=== PATIENT | male | born 1945 | race Caucasian/White ===

== ENCOUNTER → 2019-08-16 10:24 | Outpatient (CLI) | payer MEDICARE, SELFPAY ==
--- NOTE | 2019-08-16 10:27 | DI.RAD.S_ITS ---
PROCEDURE: XR LUMBAR SPINE MIN 4V INDICATIONS: axial LBP TECHNIQUE: 5 total views of the lumbar spine were acquired, including bilateral oblique views. COMPARISON: [facility], MR, LUMBAR SPINE W/O CONTRAST, 02/14/2013, 10:41. [facility], CR, SPINE LUMB 2 OR 3VW, 09/03/2012, 10:00. FINDINGS: Bones: S-shaped scoliotic curvature is seen. There is minimal retrolisthesis seen at L1-L2 and L2-L3 and L5-S1. 5 nonrib-bearing, lumbar type vertebral bodies are seen. No displaced fractures are seen. No suspicious lytic or blastic lesions are seen. There is minimal to mild disc space narrowing at L3-L4, L4-L5, and L5-S1. Lower lumbar spine facet arthropathy is seen. Age-appropriate lower thoracic spine degenerative changes are seen. Soft tissues: Overlying bowel gas pattern is normal. No suspicious soft tissue calcifications. Atherosclerotic calcification is noted. Oblique images: No pars defects. IMPRESSION: Mild lower lumbar spine degenerative changes are seen. No pars defects are seen. Dictated by: Jared Alicia M.D. on 08/16/2019 at 10:00 Approved by: Jared Alicia M.D. on 08/16/2019 at 10:03
== END ==
PROVIDERS: Family Provider Internal Medicine; PCP Internal Medicine; Visit Provider Physical Medicine & Rehabilitation
DX: M47.27 Other spondylosis with radiculopathy, lumbosacral region (principal)
CPT/HCPCS: 72110

== ENCOUNTER → 2019-08-24 09:07 | Outpatient (CLI) | payer MEDICARE, SELFPAY ==
--- NOTE | 2019-08-24 09:09 | DI.MRI.S_ITS ---
PROCEDURE: MR LUMBAR SPINE WO CON INDICATIONS: Right L3-4, L4-5 and L5-S1 facets TECHNIQUE: Noncontrast sagittal T1 spin echo and T2 fast echo, sagittal STIR, axial T1 and T2 fast spin echo through the lumbar spine. In cases with scoliosis, additional coronal T2 fast spin echo may be performed. COMPARISON: [facility], CR, XR LUMBAR SPINE MIN 4V, 08/16/2019, 10:27. FINDINGS: Image quality: Excellent. Alignment and Curvature: There is normal bony alignment. Bone Marrow: Marrow is of normal overall signal. No acute vertebral body compression fractures. Spinal Cord: Conus medullaris terminates at the T12-L1 level. Visualized cord demonstrates normal signal and size. Paraspinous Soft Tissues: No paravertebral masses. Mild infrarenal abdominal aortic aneurysm, measuring 3.3 cm. 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 T12-L1: No canal stenosis or foraminal stenosis. Facet joints are unremarkable. L1-L2: Normal appearance. L2-L3: Mild disc height loss. Mild disc bulge. Mild facet hypertrophy. No canal stenosis or foraminal stenosis. L3-L4: Moderate diffuse disc bulge. Facet and ligament hypertrophy. Moderate to severe canal stenosis. Mild bilateral foraminal stenosis. L4-L5: Mild diffuse disc bulge. Facet and ligament hypertrophy. Moderate canal stenosis. Mild to moderate right foraminal narrowing. L5-S1: Mild diffuse disc bulge. Mild facet hypertrophy. No significant canal stenosis. No significant foraminal stenosis. IMPRESSION: 1. Central canal stenosis is moderate to severe at L3-L4 and moderate at L4-5. 2. Multilevel facet arthropathy Dictated by: Kendrick Kulkarni M.D. on 08/24/2019 at 21:03 Approved by: Kendrick Kulkarni M.D. on 08/24/2019 at 21:09
== END ==
PROVIDERS: Family Provider Internal Medicine; PCP Internal Medicine; Visit Provider Physical Medicine & Rehabilitation
DX: M47.817 Spondylosis without myelopathy or radiculopathy, lumbosacral region (principal); M47.816 Spondylosis without myelopathy or radiculopathy, lumbar region; M48.061 Spinal stenosis, lumbar region without neurogenic claudication; M48.07 Spinal stenosis, lumbosacral region; I71.4 Abdominal aortic aneurysm, without rupture; I72.3 Aneurysm of iliac artery; M41.50 Other secondary scoliosis, site unspecified
CPT/HCPCS: 72148

== ENCOUNTER 2019-09-12 14:32 | Outpatient (CLI) | payer MEDICARE, SELFPAY ==
[2019-09-12] VITALS (7 sets, daily range): BP systolic 133–161; BP diastolic 58–96; PULSE 49–54; RESP 16–18; TEMP 37.1; O2SAT 98–100
--- NOTE | 2019-09-12 14:33 | DI.RAD.S_ITS ---
PROCEDURE: PAIN L/SI FACET INJ/BLK 1STL INDICATIONS: SPONDYLOSIS FINDINGS: Fluoroscopic spot filming was performed to verify placement of spinal needles at the L3 at L4, L5-L5 and L5-S1 level(s), as labeled on the films. Appropriate location(s) of the needle tip(s) was confirmed by injection of iodinated contrast. IMPRESSION: Fluoroscopy for pain management. Dictated by: Dimitri Austin M.D. on 09/12/2019 at 16:29 Approved by: Dimitri Austin M.D. on 09/12/2019 at 16:30
--- NOTE | 2019-09-12 15:13 | P.PCN_ITS ---
Procedures Date/Time Date of procedure: 09/12/19 Time of procedure: 15:13 General Procedure description: PREOP DIAGNOSIS 1. FACET ARTHROPATHY, 2. AXIAL LBP, 3. MULTILEVEL DDD, POST OP DIAGNOSIS 1. FACET ARTHROPATHY, 2. AXIAL LBP, 3. MULTILEVEL DDD, PROCEDURES 1. FLUORSCOPICALLY GUIDED CONTRAST CONTROLLED FACET JOINT INJECTIONS RIGHT L3/4, L4/5, L5/S1 SURGEON: Nikos Tiwari, INDICATIONS Smith is referred by Dr. Powell for treatment of Axial LBP FINDINGS Multilevel Facet Arthropathy with Clinically significant axial LBP DESCRIPTION OF PROCEDURE Fluoroscopically guided, contrast-controlled right L3/4, L4/5, L5/S1 facet joint injections. Following review of allergy and review of potential side effects and complications, including, but not necessarily limited to, infection, allergic reaction, local tissue breakdown, stroke, temporary or permanent nerve injury, paralysis, and possible , the patient indicated that the patient understood and agreed to proceed. An informed consent document was signed by the patient, witnessed by a nurse, and placed in the patient's chart. Additionally, other treatment options including medications, modalities, and physical therapy were reviewed with the patient. After review of previous anaesthesic history and IV conscious sedation the patient was deemed safe to proceed with todays procedure with IV conscious sedation as ASA class II designation. Safety time-out was performed to confirm patient ID, procedure to be performed and site of procedure. IV sedation was accomplished with a combination of 2mg of Versed and 50mcg of Fentanyl administered by the RN after DO order, titrated to patient comfort during the course of the procedure while the patient remained responsive to all verbal commands. In the prone position, following sterile prep and drape of the lumbar region, the posterior aspect of the right L3/4, L4/5, L5/S1 facet joints were identified fluoroscopically. The skin was anesthetized via a 25-gauge 1.5-inch needle with 1% lidocaine solution into the corresponding facet joints. At this point, a 22- gauge 3.5-inch spinal needle was atraumatically introduced and advanced under fluoroscopic guidance into the corresponding facet joints. Following negative aspiration, injections of approximately 0.2-cc of Isovue 200 confirmed interarticular placement without vascular uptake. Radiological data, including multiple fluoroscopic views of the lumbosacral spine, reveal a spinal needle at the right L3/4, L4/5, L5/S1 facet joints. Subsequent views show flow of contrast material both superiorly and inferiorly within the joint space without vascular or intrathecal uptake. At this point, a total of 0.5 cc including a mixture of 0.25 cc Marcaine and 0.25cc betamethasone was injected without complication into each of the corresponding facet joints. The patient tolerated the procedure well without signs or symptoms of complications prior to transfer to the recovery area for further monitoring. The patient was then transferred to the recovery area where they were observed for an appropriate period of time after the injection. The patient reported a VAS score of 7 prior to the procedure and a post-procedure VAS of 0. Total Fluoroscopy Time: 10.3 seconds Total Conscious Sedation Time: 19min POST OP INSTRUCTIONS The patient was provided a Pain Log to continue to record their response to the target-specific procedure prior to follow-up visit with their referring physician. Additionally, specific post-injection care instructions and a contact number to our office were provided if concerns arise regarding possible complications associated with the procedure are suspected Complications: none
[2019-09-12] MEDS: MIDAZOLAM 5 MG/5 ML VIAL IV (15:26)
[2019-09-12] MEDS: fentaNYL 100 MCG/2 ML INJ 50 MCG IV (15:27)
[2019-09-12] MEDS: IOPAMIDOL 15 ML VIAL 3 ML INJ (15:31)
[2019-09-12] MEDS: LIDOCAINE 1% 20 ML 10 ML INJ (15:31)
[2019-09-12] MEDS: BUPIVACAINE 0.5% (PF) VIAL 2 ML INJ (15:32)
[2019-09-12] MEDS: BETAMETHASONE 30 MG/5 ML MDV 12 MG INJ (15:32)
--- NOTE | 2019-09-12 15:33 | PC.NURSE ---
ASSISTING PT OFF TABLE AND TRANSPORTING TO POST PROC AREA IN STABLE CONDITION. PASSING RN CARE OF PT OFF TO ANNE-MARIE Tan RN.
--- NOTE | 2019-09-12 16:36 | PC.NURSE ---
Post procedure discharge note: Patient arrived via w/c at 1540. VSS, O2 Sat WNL on RA. No complaints of pain. Handoff report received from Adán Santillan RN. Able to stand and walk around without increased pain. Pain level at discharge 0/10 at 1620
--- NOTE | 2019-09-12 16:40 | PC.NURSE ---
VERSED AND FENTANYL PREPARED AND ADMINISTERED BY THIS RN. ALL OTHER MEDS PREPARED AND ADMINISTERED BY DR. REGAN.
== END 2019-09-12 16:20 | disposition home or self-care (01) ==
PROVIDERS: Family Provider Internal Medicine; PCP Internal Medicine; Visit Provider Physical Medicine & Rehabilitation
DX: M47.816 Spondylosis without myelopathy or radiculopathy, lumbar region (principal); M47.817 Spondylosis without myelopathy or radiculopathy, lumbosacral region; M54.5 Low back pain; M51.36 Other intervertebral disc degeneration, lumbar region; M51.37 Other intervertebral disc degeneration, lumbosacral region
CPT/HCPCS: 64493; 64494; 64495; 99152; J0702; J2250; J3010

== ENCOUNTER → 2020-06-08 10:10 | Outpatient (CLI) | payer MEDICARE, SELFPAY ==
[2020-06-09 17:55] LABS: COVID19 Sendout Not Detected (Not Detect)
== END ==
PROVIDERS: Family Provider Internal Medicine; PCP Internal Medicine; Visit Provider Nurse Practitioner
DX: Z11.59 Encounter for screening for other viral diseases (principal)
CPT/HCPCS: 87635

== ENCOUNTER 2020-06-11 12:26 | Outpatient (CLI) | payer MEDICARE, SELFPAY ==
[2020-06-11] VITALS (10 sets, daily range): BP systolic 117–158; BP diastolic 62–90; PULSE 42–52; RESP 12–19; TEMP 36.3; O2SAT 96–100
--- NOTE | 2020-06-11 12:27 | DI.RAD.S_ITS ---
PROCEDURE: PAIN L/SI FACET INJ/BLK 1STL INDICATIONS: SPONDYLOSIS COMPARISON: [facility], , PAIN L/SI FACET INJ/BLK 1STL, 09/12/2019, 15:27. FINDINGS: Fluoroscopic spot filming was performed to verify placement of spinal needles at the L3, L4, L5, S1 level(s), as labeled on the films. Appropriate location(s) of the needle tip(s) was confirmed by injection of iodinated contrast. Dictated by: Gautam Miranda M.D. on 06/11/2020 at 15:10 Approved by: Gautam Miranda M.D. on 06/11/2020 at 15:11
[2020-06-11] MEDS: MIDAZOLAM 5 MG/5 ML VIAL IV (13:22)
[2020-06-11] MEDS: BUPIVACAINE 0.5% (PF) VIAL 5 ML INJ (13:22)
[2020-06-11] MEDS: fentaNYL 100 MCG/2 ML INJ 50 MCG IV (13:22)
[2020-06-11] MEDS: LIDOCAINE 1% 20 ML 10 ML INJ (13:26)
[2020-06-11] MEDS: IOPAMIDOL 15 ML VIAL 3 ML INJ (13:27)
--- NOTE | 2020-06-11 13:37 | PM.PROC.IR.1 ---
Date/Time/Diagnoses Date of procedure: 06/11/20 Time of procedure: 13:37 Pre-procedure diagnosis: 1. FACET ARTHROPATHY Post-procedure diagnosis: same Procedure Notes Procedure: 1. Right L3, L4, L5 and S1 MB BLOCKS Indications: Smith is referred by Dr. Powell for treatment of Right Axial LBP. Physician: Nikos Tiwari Total Fluoroscopy time (seconds): 8 Total sedation minutes: 13 Complications: none Procedure in detail & Post-procedure care: DESCRIPTION OF PROCEDURE Fluoroscopically guided, contrast-controlled right L3, L4, L5 and S1 medial branch blocks with 0.5cc of 0.5% Marcaine. Following review of allergy and review of potential side effects and complications, including, but not necessarily limited to, infection, allergic reaction, local tissue breakdown, nerve injury, paralysis, stroke and possible , the patient indicated that the patient understood and agreed to proceed. An informed consent document was signed by the patient, witnessed by a nurse, and placed in the patient's chart. After review of previous anaesthesic history and IV conscious sedation the patient was deemed safe to proceed with today?s procedure with IV conscious sedation as ASA class II designation. Safety time-out was performed to confirm patient ID, procedure to be performed and site of procedure. IV sedation was accomplished with a combination of 2mg of Versed and 50mcg of Fentanyl was administered by the RN after DO order, titrated to patient comfort during the course of the procedure while the patient remained responsive to all verbal commands In the prone position, following sterile prep and drape of the lumbar region, the right L3, L4, L5 and S1 anatomical location of the medial branch of the dorsal ramus was identified fluoroscopically. Subsequently an anesthetic skin wheal using 1% lidocaine solution was initiated at each of the anatomical spots. Subsequently then a 22-gauge 3.5-inch spinal needle was atraumatically introduced and advanced under fluoroscopic guidance at each of the corresponding sites at the right L3, L4, L5 and S1 MB. After negative aspiration, 0.2 cc of Isovue 200 was injected, confirming placement without vascular or intrathecal uptake. Subsequently then 0.5 cc of 0.5% Marcaine solution was injected at each of the corresponding sites at the right L3, L4, L5 and S1 medial branch locations. The patient tolerated the procedure well without signs or symptoms of complications. The procedure tolerated the procedure well without signs or symptoms of complications prior to transfer to the recovery area continued monitoring without incident. Post-procedure, the patient was monitored initiating provocative activities to measure the amount of relief from block of the facetogenic pain. The patient reported a VAS of 7 prior to the procedure and a post-procedure VAS of 1. It has been a pleasure to assist in the diagnostic and therapeutic care of your patient. POST OP INSTRUCTIONS The patient was provided with a Pain Log to complete over the next several hours and subsequent days prior to the patient's follow up with the ordering physician. If the patient has commercial credit reviewer relief to the solution applied, then they may be a candidate for medial branch rhizotomy. The patient is aware, was provided, once again, with a Pain Log and will follow up with the referring physician for review and clinical correlation.
== END 2020-06-11 14:00 | disposition home or self-care (01) ==
LOC: RAD 12:27
PROVIDERS: Family Provider Internal Medicine; PCP Internal Medicine; Referring Provider Internal Medicine; Visit Provider Physical Medicine & Rehabilitation
DX: M47.817 Spondylosis without myelopathy or radiculopathy, lumbosacral region (principal); M47.816 Spondylosis without myelopathy or radiculopathy, lumbar region; M54.5 Low back pain
CPT/HCPCS: 64493; 64494; 64495; 99152; J2250; J3010

== ENCOUNTER → 2021-05-31 08:00 | Outpatient (CLI) | payer MEDICARE, SELFPAY ==
--- NOTE | 2021-05-31 08:01 | DI.RAD.S_ITS ---
PROCEDURE: XR LUMBAR SPINE MIN 4V INDICATIONS: BACK PAIN TECHNIQUE: 5 views of the lumbar spine were acquired, including bilateral oblique views. COMPARISON: [facility], CR, XR LUMBAR SPINE MIN 4V, 08/16/2019, 10:27. FINDINGS: Bones: No acute fracture identified. Multilevel degenerative endplate sclerosis and spurring. Diffuse facet arthropathy. Dextroscoliosis as before. Mild to moderate narrowing of the lumbar disc spaces primarily at L3-L4, L4-L5 and L5-S1. No interval change. Grade 1 retrolisthesis of L2 on L3. Soft tissues: Overlying bowel gas pattern is normal. No suspicious soft tissue calcifications. Oblique images: No pars defects. IMPRESSION: Dextroscoliosis as before. Diffuse lumbar spondylosis and facet arthropathy with no definite interval change. Dictated by: Gautam Miranda M.D. on 05/31/2021 at 9:49 Approved by: Gautam Miranda M.D. on 05/31/2021 at 9:51
== END ==
PROVIDERS: Family Provider Internal Medicine; PCP Internal Medicine; Referring Provider Physical Medicine & Rehabilitation; Visit Provider Physical Medicine & Rehabilitation
DX: M41.80 Other forms of scoliosis, site unspecified (principal); M47.817 Spondylosis without myelopathy or radiculopathy, lumbosacral region; M47.816 Spondylosis without myelopathy or radiculopathy, lumbar region; M51.26 Other intervertebral disc displacement, lumbar region; Z68.30 Body mass index [BMI] 30.0-30.9, adult
CPT/HCPCS: 72110; 99213

== ENCOUNTER → 2021-06-15 08:14 | Outpatient (CLI) | payer MEDICARE, SELFPAY ==
[2021-06-15 13:02] LABS: COVID19 -Nasal RAPID Negative (Negative)
== END ==
PROVIDERS: Family Provider Internal Medicine; PCP Internal Medicine; Visit Provider Physical Medicine & Rehabilitation
DX: Z20.822 Contact with and (suspected) exposure to COVID-19 (principal)
CPT/HCPCS: 87635; C9803

== ENCOUNTER 2021-06-17 07:28 | Outpatient (CLI) | payer MEDICARE, SELFPAY ==
[2021-06-17] VITALS (10 sets, daily range): BP systolic 121–163; BP diastolic 60–87; PULSE 41–48; RESP 12–22; TEMP 36.2; O2SAT 95–100
--- NOTE | 2021-06-17 07:30 | DI.RAD.S_ITS ---
PROCEDURE: PAIN L/S MED/LAT N RFA INDICATIONS: SPONDYLOSIS COMPARISON: [facility], CR, XR LUMBAR SPINE MIN 4V, 05/31/2021, 8:00. FINDINGS: Fluoroscopic spot filming was performed to verify placement of spinal needles at the L3, L4, L5, and S1 level(s), as labeled on the films. IMPRESSION: Intraprocedural examination within normal limits. Dictated by: Jared Alicia M.D. on 06/17/2021 at 8:37 Approved by: Jared Alicia M.D. on 06/17/2021 at 8:38
[2021-06-17] MEDS: fentaNYL 100 MCG/2 ML INJ 50 MCG IV (08:17)
[2021-06-17] MEDS: MIDAZOLAM 5 MG/5 ML VIAL IV (08:17)
[2021-06-17] MEDS: BUPIVACAINE 0.5% (PF) VIAL 5 ML INJ (08:42)
[2021-06-17] MEDS: LIDOCAINE 1% 20 ML 10 ML INJ (08:42)
--- NOTE | 2021-06-17 08:45 | P.PCN_ITS ---
Date/Time/Diagnoses Date of procedure: 06/17/21 Time of procedure: 08:45 Pre-procedure diagnosis: 1. RECALCITRANT FACET ARTHROPATHY Post-procedure diagnosis: same Procedure Notes Procedure: 1. RIGHT L3, L4 AND L5 MEDIAL BRANCH RADIOFREQUENCY NEUROTOMY AND RIGHT S1 DORSAL RAMUS BRANCH RADIOFREQUENCY NEUROTOMY Indications: Smith is referred by Dr. Powell for treatment of facet arthropathy. Physician: Nikos Tiwari Total Fluoroscopy time (seconds): 12 Total sedation minutes: 23 Complications: none Procedure in detail & Post-procedure care: DESCRIPTION OF PROCEDURE Right L3, L4 and L5 medial branch radiofrequency neurotomy and right S1 dorsal ramus branch radiofrequency neurotomy under fluoroscopy with conscious sedation. The patient is well known to this clinic having undergone previous facet injections with good but temporary relief. The patient has experienced appropriate, concordant relief with previous facet and median branch blocks but the patient's pain has been recalcitrant to further conservative measures. Therefore, based upon the patient's relief and persistent symptoms, the patient is considered an appropriate candidate for facet rhizotomy. All of the patient's questions regarding the risks versus benefits of the procedure, including, but not limited to, bleeding, infection, temporary as well as lasting nerve injury, paralysis, stroke, and , as well treatment alternatives were answered to satisfaction. After review of previous anaesthesic history and IV conscious sedation the patient was deemed safe to proceed with today?s procedure with IV conscious sedation as ASA class II designation. Safety time-out was performed to confirm patient ID, procedure to be performed and site of procedure. IV sedation was accomplished with a combination of 2mg of Versed and 50mcg of Fentanyl was administered by the RN after DO order, titrated to patient comfort during the course of the procedure while the patient remained responsive to all verbal commands. After obtaining informed consent, denial of pertinent drug allergies, as well as being made aware of the potential risks of bleeding, infection, spinal cord trauma, paralysis, temporary and permanent nerve damage, seizure, stroke, and possible , the patient was brought to the fluoroscopy suite and positioned prone on the fluoroscopy table. The lumbar region was prepped with Betadine and covered with a fenestrated drape in the usual sterile fashion. Appropriate monitors applied including pulse oximeter, pulse, and blood pressure for regular monitoring throughout the procedure. After local infiltration using 1% lidocaine, under fluoroscopic guidance, a 10- cm RF insulated needle with a 10-mm active tip was positioned parallel to the junction of the right sacral ala and the superior articulating process where the S1 dorsal ramus resides. Needle placement was confirmed with sensory stimulation at 50 Hz, with motor stimulation of .5v on the right which produced local stimulation without radicular component. The stimulation was then increased to 2v with, once again, only local multifidus stimulation without radicular component. This was then followed by two discreet lesions performed at 80 degrees Celsius for 90 seconds each. The needle was then removed and the identical procedure was performed along the length of the right L5 medial branch with motor stimulation at .7v on the right. The identical procedure was once again performed along the length of the right L4 medial branch with motor stimulation of .5v on the right. The identical procedure was once again performed along the length of the right L3 medial branch with motor stimulation of .5v on the right. The patient tolerated the procedure well without signs or symptoms of complications prior to transfer to the recovery area continued monitoring without incident. The patient was then transferred to the recovery area where they were observed for an appropriate period of time after the injection. The patient was then transferred to the recovery area where they were observed for an appropriate period of time after the injection. The patient reported a VAS score of 8 prior to the procedure and a post- procedure VAS of 0. POST OP INSTRUCTIONS The patient was provided a Pain Log to continue to record the patient's response to the target-specific procedure prior to the patient's follow-up visit with the referring physician. Additionally, specific post-injection care instructions and a contact number to our office were provided if concerns arise regarding possible complications associated with the procedure are suspected.
== END 2021-06-17 09:05 | disposition home or self-care (01) ==
LOC: RAD 07:29
PROVIDERS: Family Provider Internal Medicine; PCP Internal Medicine; Referring Provider Physical Medicine & Rehabilitation; Visit Provider Physical Medicine & Rehabilitation
DX: M47.817 Spondylosis without myelopathy or radiculopathy, lumbosacral region (principal); M47.816 Spondylosis without myelopathy or radiculopathy, lumbar region
CPT/HCPCS: 64635; 64636; 99152; 99153; J2250; J3010

== ENCOUNTER → 2022-02-08 10:03 | Outpatient (CLI) | payer MEDICARE, SELFPAY ==
[2022-02-08 12:26] LABS: COVID19 -Nasal RAPID Negative (Negative)
== END ==
PROVIDERS: Family Provider Internal Medicine; PCP Internal Medicine; Visit Provider Physical Medicine & Rehabilitation
DX: Z20.822 Contact with and (suspected) exposure to COVID-19 (principal)
CPT/HCPCS: 87635; C9803

== ENCOUNTER 2022-02-10 09:52 | Outpatient (CLI) | payer MEDICARE, SELFPAY ==
[2022-02-10] VITALS (9 sets, daily range): BP systolic 114–185; BP diastolic 56–95; PULSE 45–50; RESP 14–20; TEMP 36.3; O2SAT 98–100
--- NOTE | 2022-02-10 09:54 | DI.RAD.S_ITS ---
PROCEDURE: PAIN L/S TRANSFORAMINAL INJECT INDICATIONS: SPONDYLOSIS COMPARISON: [facility], CR, XR LUMBAR SPINE MIN 4V, 05/31/2021, 8:00. [facility], XA, PAIN L/S MED/LAT N RFA, 06/17/2021, 8:19. FINDINGS: Fluoroscopic spot filming was performed to verify placement of a spinal needle at the L4-L5 level, as labeled on the films. Appropriate location of the needle tip was confirmed by injection of iodinated contrast. IMPRESSION: Intraprocedural examination within normal limits. Dictated by: Jared Alicia M.D. on 02/10/2022 at 11:43 Approved by: Jared Alicia M.D. on 02/10/2022 at 11:43
[2022-02-10] MEDS: MIDAZOLAM 2 MG/2 ML VIAL IV (10:58)
[2022-02-10] MEDS: DEXAMETHASONE 10 MG/ML VIAL 20 MG INJ (11:02)
[2022-02-10] MEDS: BETAMETHASONE 30 MG/5 ML MDV 6 MG INJ (11:02)
[2022-02-10] MEDS: BUPIVACAINE 0.25% (PF) VIAL 2 ML INJ (11:02)
[2022-02-10] MEDS: IOPAMIDOL 15 ML VIAL 3 ML INJ (11:03)
--- NOTE | 2022-02-10 11:14 | P.PCN_ITS ---
Date/Time/Diagnoses Date of procedure: 02/10/22 Time of procedure: 11:14 Pre-procedure diagnosis: 1. FORAMINAL STENOSIS WITH LE SYMPTOMS Post-procedure diagnosis: same Procedure Notes Procedure: 1. FLUOROSCOPICALLY GUIDED CONTRAST CONTROLLED TRANSFORAMINAL EPIDURAL STEROID INJECTION - RIGHT L4/5 TFESI Indications: Smith is referred by Dr. Powell for treatment of Foraminal Stenosis with Right LE Symptoms Physician: Nikos Tiwari Total Fluoroscopy time (seconds): 13 Total sedation minutes: 11 Complications: none Procedure in detail & Post-procedure care: FINDINGS Foraminal Nerve Root Compression secondary to disc disease and facet hypertrophy DESCRIPTION OF PROCEDURE Following review of allergy and review of potential side effects and complications, including, but not necessarily limited to, infection, allergic reaction, local tissue breakdown, stroke, temporary or permanent nerve injury, paralysis, and possible , the patient indicated that the patient understood and agreed to proceed. An informed consent document was signed by the patient, witnessed by a nurse, and placed in the patient's chart. Additionally, other treatment options including medications, modalities, and physical therapy were reviewed with the patient. After review of previous anaesthesic history and IV conscious sedation the patient was deemed safe to proceed with today?s procedure with IV conscious sedation as ASA class II designation. Safety time-out was performed to confirm patient ID, procedure to be performed and site of procedure. IV sedation was accomplished with a combination of 2mg of Versed was administered by the RN after DO order, titrated to patient comfort during the course of the procedure while the patient remained responsive to all verbal commands In the prone position following sterile prep and drape of the lumbar region, the right L4/5 posterior neuroforamen was identified fluoroscopically. The skin was anesthetized via a 25-gauge 1.5-inch needle with 1% lidocaine solution. At this point, a 25-gauge 3.5-inch spinal needle was atraumatically introduced and advanced under fluoroscopic guidance through the posterior right L4/5 neuroforamen to approximately the anterior aspect of the canal. Depth was confirmed on lateral view. Following negative aspiration, injection of approximately 1.5cc of Isovue 200 under live fluoroscopy in the AP view confi rmed excellent flow along the nerve root, into the epidural space without vascular or intrathecal uptake observed Radiological data, including multiple fluoroscopic views of the lumbosacral spine, reveal a spinal needle at the right L4/5 posterior neuroforamen. Subsequent views show flow of contrast material flowing superiorly and inferiorly along the nerve root confirming epidural flow. Subsequently, a test dose of 1.5 cc of 1% lidocaine solution was administered and patient was observed for two minutes for signs or symptoms of complications, including abdominal pain, shortness of breath, bilateral upper or lower extremity weakness, nausea and vomiting, prior to steroid injection. At this point, a total of 3cc or 20mg of dexamethasone and 6mg of betamethasone was injected without incident. The procedure tolerated the procedure well without signs or symptoms of complications prior to transfer to the recovery area continued monitoring without incident. The patient was then transferred to the recovery area where they were observed for an appropriate time after the injection. The patient reported a VAS score of 7 prior to the procedure and a post- procedure VAS of 0. POST OP INSTRUCTIONS The patient was provided a Pain Log to continue to record their response to the target-specific procedure prior to follow-up visit with their referring phy sician. Additionally, specific post-injection care instructions and a contact number to our office were provided if concerns arise regarding possible complications associated with the procedure are suspected.
== END 2022-02-10 11:34 | disposition home or self-care (01) ==
PROVIDERS: Family Provider Internal Medicine; PCP Internal Medicine; Referring Provider Physical Medicine & Rehabilitation; Visit Provider Physical Medicine & Rehabilitation
DX: M48.061 Spinal stenosis, lumbar region without neurogenic claudication (principal); M51.16 Intervertebral disc disorders with radiculopathy, lumbar region
CPT/HCPCS: 64483; 99152; J0702; J1100; J2250

== ENCOUNTER → 2022-06-21 10:04 | Outpatient (CLI) | payer MEDICARE, SELFPAY ==
[2022-06-21 12:03] LABS: COVID19 -Nasal RAPID Negative (Negative)
== END ==
PROVIDERS: Family Provider Internal Medicine; PCP Internal Medicine; Visit Provider Physical Medicine & Rehabilitation
DX: Z20.822 Contact with and (suspected) exposure to COVID-19 (principal)
CPT/HCPCS: 87635; C9803

== ENCOUNTER 2022-06-23 09:39 | Outpatient (CLI) | payer MEDICARE, SELFPAY ==
[2022-06-23] VITALS (8 sets, daily range): BP systolic 114–152; BP diastolic 60–103; PULSE 46–50; RESP 12–21; TEMP 36.3; O2SAT 96–99
--- NOTE | 2022-06-23 09:41 | DI.RAD.S_ITS ---
PROCEDURE: PAIN SI JOINT INJECTION INDICATIONS: SACROILIAC DISORDER COMPARISON: [facility], CR, XR LUMBAR SPINE MIN 4V, 05/31/2021, 8:00. [facility], XA, PAIN L/S MED/LAT N RFA, 06/17/2021, 8:19. [facility], XA, PAIN L/S TRANSFORAMINAL INJECT, 02/10/2022, 11:02. FINDINGS: On these intraprocedural images, there is a spinal needle seen overlying the inferior aspect of the right sacroiliac joint. Appropriate position of the tip of the needle was confirmed by injection of a small amount of iodinated contrast. IMPRESSION: Successful sacroiliac joint injection. Dictated by: Jared Alicia M.D. on 06/23/2022 at 11:18 Approved by: Jared Alicia M.D. on 06/23/2022 at 11:18
[2022-06-23] MEDS: MIDAZOLAM 2 MG/2 ML VIAL IV (11:12)
[2022-06-23] MEDS: BUPIVACAINE 0.5% (PF) VIAL 2 ML INJ (11:16)
[2022-06-23] MEDS: IOPAMIDOL 15 ML VIAL 3 ML INJ (11:16)
[2022-06-23] MEDS: BETAMETHASONE 30 MG/5 ML MDV 12 MG INJ (11:17)
--- NOTE | 2022-06-23 11:28 | PM.PROC.IR.1 ---
Date/Time/Diagnoses Date of procedure: 06/23/22 Time of procedure: 11:28 Pre-procedure diagnosis: Sacroiliac joint pain/DJD Post-procedure diagnosis: same Procedure Notes Procedure: Fluoroscopically guided contrast controlled right sacroiliac joint injection Indications: Smith is referred by Dr. Powell for treatment of right sacroiliac joint DJD Physician: Nikos Tiwari Total Fluoroscopy time (seconds): 17 Total sedation minutes: 10 Complications: none Procedure in detail & Post-procedure care: DESCRIPTION OF PROCEDURE Fluoroscopically guided, contrast controlled right sacroiliac joint injection Following review of allergies and review of potential side effects and complications, including, but not necessarily limited to, infection, allergic reaction, local tissue breakdown, temporary as well as permanent nerve injury, paralysis, stroke and possible , the patient indicated that they understood and agreed to proceed. An informed consent was signed by the patient, witnessed by a nurse, and placed in the patient's chart. Additionally, other treatment options including modalities, medications, and physical therapy were reviewed with the patient. After review of previous anaesthesic history and IV conscious sedation the patient was deemed safe to proceed with today?s procedure with IV conscious sedation as ASA class II designation. Safety time-out was performed to confirm patient ID, procedure to be performed and site of procedure. IV sedation was accomplished with a combination of 2mg of Versed was administered by the RN after DO order, titrated to patient comfort during the course of the procedure while the patient remained responsive to all verbal commands In the prone position following sterile prep and drape of the pelvic region, the hyper lucency on in the inferior aspect of the sacroiliac joint was identified fluoroscopically the skin was anesthetized be a 25 gauge 1 eventual with approximately 2 cc of 1% lidocaine solution. At this point, a 22 gauge 3 in spinal needle was atraumatically introduced and advanced under fluoroscopic guidance into the inferior aspect of the right sacroiliac joint. Following negative aspiration, approximately 0.3cc of Isovue-300 was injected confirming intra-articular placement without vascular uptake. Radiographic data, including multiple fluoroscopic views of the pelvis, reveals a spinal needle in the sacroiliac joint hyper lucent zone. Subsequent view show flow contrast tear superiorly and inferiorly within the joint capsule without vascular intrathecal uptake. At this point a total of 1cc of 0.5% Marcaine was combined with 1cc of 6 mg of betamethasone was injected without incident. The procedure tolerated the procedure well without signs or symptoms of complications prior to transfer to the recovery area continued monitoring without incident. The patient was then transferred to the recovery area with a bur observed for an appropriate time after the injection. The patient reverted a vas score of 7 prior to the procedure and post-procedure vas of 1. POSTOP INSTRUCTIONS The patient was provided with a pain like to continue to record the patient's response to the target specific procedure prior to the patient's follow-up visit with the referring physician. Additionally, specific post injection care instructions and a contact number to our office were provided if concerns arise regarding the possible complications associated with procedure are suspected.
== END 2022-06-23 11:50 | disposition home or self-care (01) ==
LOC: RAD 09:40
PROVIDERS: Family Provider Internal Medicine; PCP Internal Medicine; Referring Provider Physical Medicine & Rehabilitation; Visit Provider Physical Medicine & Rehabilitation
DX: M53.3 Sacrococcygeal disorders, not elsewhere classified (principal); M46.1 Sacroiliitis, not elsewhere classified
CPT/HCPCS: 27096; 99152; J0702; J2250